=== PATIENT | female | born 1970 | race Caucasian/White ===

== ENCOUNTER 2023-10-05 14:08 | Outpatient (CLI) | payer OTHER, SELFPAY ==
--- NOTE | ~2023-10-05 | XR_ITS ---
EXAMINATION: XR abdomen/kub 1V DATE: 10/05/2023 14:28 INDICATION: Left mid abdominal pain. Constipation. TECHNIQUE: A supine view of the abdomen on 2 radiographs was obtained. COMPARISON: None. FINDINGS: There are no dilated loops of bowel. There is a small volume of stool in the colon. Calcifi cations in the pelvis are likely phleboliths. IMPRESSION: 1. Normal bowel gas pattern. Reviewed, dictated and finalized at location A. INSTALLER
== END 2023-10-05 14:09 | disposition home or self-care (01) ==
PROVIDERS: PCP Family Medicine; Visit Provider Nurse Practitioner
DX: R10.9 Unspecified abdominal pain (principal); K59.00 Constipation, unspecified
CPT/HCPCS: 74018